=== PATIENT | female | born 2000 | race Caucasian/White ===

== ENCOUNTER 2024-11-07 18:13 | Emergency (ER) | payer MEDICAID ==
[~2024-11-07] VITALS: Ht 167.6 cm; Wt 89.0 kg
[2024-11-07 18:19] VITALS: BP 128/52; TEMP 36.9; O2SAT 98
[2024-11-07 18:23] VITALS: PULSE 86; RESP 18; O2SAT 97
[2024-11-07 20:54] LABS: BASOPHILS % 0.2 % (0.0-2.0); HEMATOCRIT. 32.1 % (36.0-48.0); HEMOGLOBIN. 10.8 g/dL (12.0-16.0); LYMPHOCYTES % 28.9 % (20.0-50.0); MEAN CORPUSCULAR HEMOGLOBIN 28.9 pg (28.0-32.0); MEAN CORPUSCULAR HGB CONC 33.5 g/dL (31.0-37.0); MEAN CORPUSCULAR VOLUME 86.1 fL (81.0-99.0); MONOCYTES % 5.7 % (2.0-8.0); NEUTROPHILS % 64.2 % (40.0-76.0); PLATELET 388 x1000/uL (130-400); RED BLOOD CELL COUNT 3.73 mill/uL (4.2-5.4); RED CELL DISTRIBUTION WIDTH 13.4 % (11.6-14.6); WHITE BLOOD COUNT 12.9 x1000/uL (4.5-11.0)
[2024-11-07 21:06] LABS: CARBON DIOXIDE 22 mEq/L (21-32); CHLORIDE 106 mEq/L (98-107); SODIUM 137 mEq/L (136-145)
[2024-11-07 21:12] LABS: CREATININE 0.6 mg/dL (0.6-1.0); GLUCOSE 104 mg/dL (70-105); UREA NITROGEN BLOOD 12 mg/dL (9-23)
[2024-11-07 21:27] LABS: B-HCG QUANTITATIVE 9944 mIU/mL (<3)
== END 2024-11-07 22:38 | disposition home or self-care (01) ==
LOC: ER 18:13
DX: O26.892 Other specified pregnancy related conditions, second trimester (principal); R10.30 Lower abdominal pain, unspecified; O32.1XX0 Maternal care for breech presentation, not applicable or unspecified; Z3A.19 19 weeks gestation of pregnancy
CPT/HCPCS: 36415; 76805; 80048; 81025; 84702; 85025; 99284